=== PATIENT | female | born 1975 | race Caucasian/White ===

== ENCOUNTER 2023-09-26 16:44 | Inpatient (IN) | payer OTHER, SELFPAY ==
[2023-09-26] VITALS (11 sets, daily range): BP systolic 128–184; BP diastolic 74–118; BMI 34.9
--- NOTE | 2023-09-26 11:55 | ED.GENMED ---
History of Present Illness
General
Chief Complaint: Abdominal Pain
Source: patient
Time Seen by Provider: 09/26/23 11:42
Travel History
Have you had any contact with someone who has COVID-19?: No
Do you have any symptoms of coronavirus? Fever > 100 degrees, chills, cough, shortness of breath, sore throat, loss of taste or smell, muscle aches, or headache?: No
History of Present Illness
History of Present Illness:
48-year-old female presents to the emergency room complaining of a burning discomfort in her upper mid abdomen which began at about 1 AM last night. The discomfort woke her from sleep. She has vomited several times since then. Pain does not
radiate to her back. Patient does not believe she consumed anything yesterday which would have upset her stomach. She denies any fever though she does have chills particular after vomiting. Patient has had a cholecystectomy in the past. She
denies alcohol use. No diarrhea. Patient has the urge to defecate but cannot go today. Her last normal abdominal was yesterday. Patient denies any new medications. No change in the dose of her medications. No sick contacts.
Past History
Past History
ED Past Medical History: Asthma, Psychiatric (A/D) and Other (Migrainous headaches, recurrent sinusitis)
ED Past Surgical History: Cholecystectomy and Gynecological (D&E , Hysterectomy)
Social History
Tobacco: Former smoker
Alcohol: Occasional
Drug: None
Personal:
Living: with family
Employment: Employed
Family History
Family History: Hypertension; Negative Early CAD
Phy Exam
Physical Exam
Physical Exam:
General: Awake, Alert, Oriented X3. No acute distress.
Vitals: unremarkable
Head: Atraumatic
Eyes: Pupils equal, EOMI
Throat: Airway intact, no exudates
Neck: Trachea midline
Lungs: Clear and equal b/l
Heart: Regular rate, no murmurs
Abd: Soft, no reproducible discomfort, No pulsatile mass
Neuro: Nonfocal
Skin: Warm, dry, no rash
Extremities: pulses equal b/l, no edema
Course
Orders/Labs/Results
Orders:
Orders
09/26/23 10:58
EKG [Electrocardiogram (*1)] Urgent
Reason for Study: Chest Pain
09/26/23 10:59
EKG- Treatment ONCE
09/26/23 11:45
IV Insert/Care/Rem.- Treatment PRN
09/26/23 11:51
0.9% Sodium Chloride 1000 ml [Nss] 1,000 ml IV BOLUS
Famotidine [Pepcid] 20 mg IV NOW STA
Ondansetron Injectable [Zofran] 4 mg IV NOW STA
09/26/23 11:52
Complete Blood Count/With Diff Urgent
Comprehensive Metabolic Panel Urgent
Lipase Urgent
09/26/23 13:10
CT Abd/pelvis W Iv Cont Urgent
Comment:
Reason For Exam: upper abd pain
HYDROmorphone [Dilaudid] 0.5 mg IV NOW STA
09/26/23 14:21
Ondansetron Injectable [Zofran] 4 mg .ROUTE .STK-MED ONE
09/26/23 15:23
HYDROmorphone [Dilaudid] 0.25 mg .ROUTE .STK-MED ONE
09/26/23 15:26
HYDROmorphone [Dilaudid] 0.25 mg IV NOW STA
09/26/23 16:24
Admit/Transfer Patient As Directed
Co-Sign Provider:
Level of Care: Inpatient admission
Assign to:: Medical/Surgical
Physician / Group: Suman
Diagnosis: Small bowel obstruction
Reason for Hospitalization: NPO/IVFs
Expected length of stay greater than two midnights?: Yes
ELOS- Estimated Length of Stay in days: 3
I certify the patient meets the requirements for IP care: Yes
Code Status As Directed
Resuscitation Status: Full Code
09/26/23 16:38
UA Reflex to Culture [Urinalysis Reflex To Culture] Routine
Abnormal Lab Results
09/26/23
11:52
WBC 23.0 H 10^3/uL
(4.8-10.8)
RBC 5.48 H 10^6/uL
(4.20-5.40)
Hgb 16.4 H g/dL
(12.0-16.0)
Abs Immat Gran (auto) 0.2 H 10^3/uL
(0-0.05)
Absolute Neuts (auto) 20.7 H 10^3/uL
(1.4-6.5)
Absolute Monos (auto) 0.7 H 10^3/uL
(0.1-0.6)
Immature Gran % 0.7 H %
(0-0.5)
Neutrophils % 89.7 H %
(42.2-75.2)
Lymphocytes % 6.1 L %
(20.5-51.1)
Glucose 143 H mg/dl
(70-99)
Calcium 11.1 H mg/dl
(8.4-10.2)
AST 53 H U/L
(14-36)
ALT 82 H U/L
(0-35)
Total Protein 8.6 H g/dl
(6.3-8.2)
Albumin 5.1 H g/dl
(3.5-5.0)
09/26/23 11:52
09/26/23 11:52
Vital Signs
Initial and Last Documented VS:
Initial Vital Signs
Temp Pulse Resp BP Pulse Ox
98.7 F 107 16 184/118 96
09/26/23 10:56 09/26/23 10:56 09/26/23 10:56 09/26/23 10:56 09/26/23 10:56
Last Documented Vital Signs
Temp Pulse Resp BP Pulse Ox
98.7 F 101 16 144/94 96
09/26/23 10:56 09/26/23 16:00 09/26/23 16:00 09/26/23 16:00 09/26/23 16:00
MDM/Problems Addressed
Differential Diagnosis Includes:
Gastritis, pancreatitis, peptic ulcer disease
MDM/Problems Addressed:
Patient presents with moderate abdominal pain. Labs show an elevated white blood cell count, normal electrolytes and renal function, mildly elevated AST and ALT. Lipase is normal. CT of the abdomen and pelvis was performed without oral contrast
but with IV contrast and this shows evidence of a small bowel obstruction. Patient has vomited once here in the emergency room. I think it is reasonable to hold off on an NG tube right now and focus on IV hydration, bowel rest and analgesia.
Discussed patient's presentation with Dr. Dhillon who is on-call for general surgery. He agrees with this plan. Patient will be admitted to the hospitalist service. This factors are small bowel obstruction his previous abdominal surgery so this is
likely related to adhesions.
*Radiology
Radiology exam reviewed: radiology read reviewed
*Pulse Oximetry
Patient hypoxic: no
*EKG
Interpreted by ED Provider?: Yes
Heart Rate: 91
Rate: normal
Rhythm: sinus
[place]: normal axis
Interval: normal interval
QRS Pattern: normal QRS
Ischemia: no ischemia
*Critical Care Note
Total Time (30-74mins, 75-104mins- exclusive of procedures): Not Applicable
ED Attending Note
-
Portions of this chart may have been created with voice recognition software.� Occasional wrong word or��sound alike� substitutions may have occurred due to the inherent limitations of voice recognition software.
Discharge Plan
Departure
Patient Disposition: Admit
Date of Disposition: 09/26/23
Time of Disposition: 16:10
Admit to: Med/Surg
Presentation/result/management discussed w/ accepting MD/DO: Hospitalist
Condition: Fair
Discharge Problem:
Small bowel obstruction
Interventions
Interventions:
*Risk Screen - Suicide Last Done: 09/26/23 10:56
*General Assessment Last Done: 09/26/23 11:43
*Neglect/Abuse Screening Last Done: 09/26/23 10:56
ED- Fall Risk Assessment Last Done: 09/26/23 11:44
*ED COVID-19 Vaccine History Last Done: 09/26/23 11:43
XE-Hzgbwf-Btpvnnvsoh Assessment Last Done: 09/26/23 12:10
[2023-09-26 11:59] LABS: % Basophils 0.4 % (0-2); % Eosinophils 0.1 % (0-6); % Immature Granulocytes 0.7 % (0-0.5); % Lymphocytes 6.1 % (20.5-51.1); % Neutrophils 89.7 % (42.2-75.2); Absolute Basophils 0.1 10^3/uL (0-0.2); Absolute Immature Granulocytes 0.2 10^3/uL (0-0.05); Absolute Lymphocytes 1.4 10^3/uL (1.2-3.4); Absolute Monocytes 0.7 10^3/uL (0.1-0.6); Absolute Neutrophils 20.7 10^3/uL (1.4-6.5); Hematocrit 45.7 % (37.0-47.0); Hemoglobin 16.4 g/dL (12.0-16.0); Mean Corp Hgb Conc. 35.9 g/dL (33.0-37.0); Mean Corpuscular Hgb 29.9 pg (27.0-31.0); Mean Corpuscular Volume 83.4 fL (81.0-99.0); Mean Platelet Volume 9.5 fL (7.4-10.4); Nucleated Red Blood Cells % 0 %; Platelet Count 285 10^3/uL (130-400); Red Blood Cell Count 5.48 10^6/uL (4.20-5.40); Red Cell Dist. Width 12.4 % (11.5-14.5)
[2023-09-26] MEDS: ZOFRAN 4 MG IV (12:03)
[2023-09-26] MEDS: NSS 1000 IV (12:03)
[2023-09-26] MEDS: PEPCID 20 MG IV (12:06)
[2023-09-26 12:19] LABS: ALT (SGPT) 82 U/L (0-35); AST (SGOT) 53 U/L (14-36); Albumin 5.1 g/dl (3.5-5.0); Alkaline Phosphatase 90 U/L (38-126); Blood Urea Nitrogen 10 mg/dl (7-17); Calcium 11.1 mg/dl (8.4-10.2); Carbon Dioxide 23 mmol/L (22-30); Chloride 104 mmol/L (98-107); Estimated Creatinine Clearance > 125 ml/min; Glucose 143 mg/dl (70-99); Lipase 116 U/L (23-300); Sodium 138 mmol/L (135-145); Total Bilirubin 0.8 mg/dl (0.2-1.3); Total Protein 8.6 g/dl (6.3-8.2); eGFR > 60.00
[2023-09-26] MEDS: DILAUDID 0.5 MG IV (13:46)
--- NOTE | 2023-09-26 14:29 | EDRN ---
Pt was just vomiting and given a second dose of zofran. Pt is awaiting to go to CT. Pt states post vomiting pain 5-6/10 at this time post vomiting episode. Pt declined dilaudid and this RN asked about morphine and she declined any medication for
pain at this time. Pt informed to call me if pain is like it was prior to dilaudid.
--- NOTE | 2023-09-26 15:17 | EDRN ---
Dr. Jacobo verbally said pt could have more dilaudid for her pain. Pt's pain post dilaudid decreased to 4/10 but has been increasing, was 5-6/[address] scan and is now 7/10. Pt did not like how she felt post dilaudid and is declining any more
pain medication at this time.
[2023-09-26] MEDS: DILAUDID 0.25 MG IV (15:26)
--- NOTE | 2023-09-26 16:09 | EDRN ---
Dr. Jacobo informed pt's pain now fluctuating from 1-7/10 and that she is having severe nausea again. pt sitting up in bed looking uncomfortable. He said he will be in to speak to pt.
--- NOTE | 2023-09-26 16:14 | EDRN ---
General surgery in room w/ pt at this time.
--- NOTE | 2023-09-26 16:20 | EDRN ---
Serena Lewis PA in to see pt at this time.
--- NOTE | 2023-09-26 16:25 | CON.GS ---
Medical History
-
Chief Complaint: abdominal pain
History of Present Illness:
This is a 48 yo female with a h/o asthma, lap aileen, partial hysterectomy and bladder sling who presents through the ED with nausea and vomiting and worsening upper abdominal pain/burning. She reports feeling intermittent abdominal discomfort over
the past few weeks with bloating. She unsure how long it has been since she last passed flatus but notes she has been belching a lot over the past week. Her last BM was yesterday. Today, she had the sensation that she needed to pass gas and stool,
but was unable to. She complains of burning epigastric discomfort but is non-tender on exam. Abdomen is soft with mild distention. Nausea improved since presentation. She denies fevers and chills but does note she feels quite flushed and warm just
before vomiting. She has 2 very small hernias noted, umbilical and ventral, both are soft and reducible.
Past Medical History
Past Medical History: Asthma, Psychiatric (anxiety/depression) and Other (migraines)
Past Surgical History: Cholecystectomy, Gynecological (D&E, partial hysterectomy (lap)) and Urological (bladder sling)
Social History
Tobacco: Former Smoker
Alcohol: Occasional
Personal:
Living: With Family (2 teenage children)
Family History
Family History: Reviewed & Not Pertinent
Allergies / Home Medications
Allergy/AdvReac Type Severity Reaction Status Date / Time
fish derived Allergy Hives Verified 09/26/23 10:56
shellfish derived Allergy Itching Verified 09/26/23 10:56
�Medication �Instructions �Recorded �Confirmed �Type
L.acidoph, paracasei,B. lactis 10 1 ea PO DAILY 12/07/20 12/07/20 History
billion cell capsule
cranberry 1,000 mg capsule 1,000 mg PO DAILY 12/07/20 12/07/20 History
docosahexaenoic acid 100 mg capsule 100 mg PO DAILY 12/07/20 12/07/20 History
fluvoxamine 150 mg 250 mg PO DAILY 12/07/20 12/07/20 History
capsule,extended release 24 hr
montelukast 10 mg tablet 10 mg PO DAILY 12/07/20 12/07/20 History
multivit,bqapser-rnfs-PQ-lut-#179herbal 1 tab PO DAILY 12/07/20 12/07/20 History
13.5 mg-200 mcg-250 mcg tablet
(Womens Multivitamin High Potency)
prednisone 10 mg tablets in a dose 10 mg PO DAILY 12/07/20 12/07/20 History
pack
gabapentin 300 mg capsule 300 mg PO DAILY #20 caps 11/13/22 Rx
methylprednisolone 4 mg tablets in See Rx Instructions PO .COMPLEX 11/13/22 Rx
a dose pack (Methylpred DP) #21 ea
Review of Systems
-
History Source: Patient and Family (father at bedside)
All other systems: Negative unless noted
A 10 point review of systems was completed, and was negative except as per HPI.
Physical Exam
Vital Signs
Temp Pulse Resp BP Pulse Ox
98.7 F 101 16 144/94 96
09/26/23 10:56 09/26/23 16:00 09/26/23 16:00 09/26/23 16:00 09/26/23 16:00
09/25/23 09/26/23 09/27/23
06:59 06:59 06:59
Actual Weight 98.2 kg
Body Mass Index (BMI) 0.0
Lab Results
09/26/23 11:52
09/26/23 11:52
WBC 23.0 10^3/uL (4.8-10.8) H 09/26/23 11:52
Hgb 16.4 g/dL (12.0-16.0) H 09/26/23 11:52
Hct 45.7 % (37.0-47.0) 09/26/23 11:52
Plt Count 285 10^3/uL (130-400) 09/26/23 11:52
Abs Immat Gran (auto) 0.2 10^3/uL (0-0.05) H 09/26/23 11:52
Neutrophils % 89.7 % (42.2-75.2) H 09/26/23 11:52
Physical Exam
General: Well Developed and Well Nourished
HEENT: Moist Mucous Membranes
Respiratory: Non Labored Respirations
GI: Soft, Non Tender, Distended (mild) and Other (umbilical hernia soft, reducible. small ventral hernia, also soft, reducible)
Skin: Warm and Dry
Neuro: Awake, Alert and AO x 3
Data Reviewed
-
CT Scan: Image Personally Visualized and interpreted, Report Reviewed by me, Discussed with Physician, Discussed with Patient and Discussed with Family
Labs: Labs Reviewed by me, Discussed with Physician, Discussed with Patient and Discussed with Family
Old Records: Reviewed
Assessment / Plan
-
48 yo female h/o asthma, lap aileen, partial hysterectomy and bladder sling who presents through the ED with n/v, epigastric abdominal pain and belching. Unable to pass bm/flatus today despite cramping. Several week history of cramping pain, last BM
was yesterday. AFVSS, +Leukocytosis. CT imaging reviewed with findings consistent with SBO, suspect secondary to adhesions from prior surgery. No free air or evidence of closed loop obstruction present. There are 2 small hernias present without
bowel involvement on CT; soft/reducible on exam. Abdomen soft/nt/mild distention.
No plans for emergent surgery at this time, will follow for resolution with bowel rest and supportive measures at this time
--NPO except ice chips/meds
--NGT placement if develops intractable n/v.
--IVF as per medical team
--Trend labs/exams
--- NOTE | 2023-09-26 16:54 | HPS.HSE ---
Family Physician
-
Family Physician: Warren Phillips Jr.
Chief Complaint
-
Abdominal Pain with Nausea / Vomiting
History of Present Illness
Patient is a 48 year old female with a past medical history anxiety, and GERD who presents today for worsening abdominal pain which began early this morning. Patient reports intermittent pain for the past week but reports this morning she was awoken
with severe pain. She describes it as a burning sensation in her epigastric region and states the pain was 9/10 at onset. She had tried Pepcid, Tums, Pepto-Bismol, and 1 dose of omeprazole which no relief. She also has associated chills, nausea and
vomiting and increased bloating. She has a decrease in appetite but denies eating any new foods. She normally passes formed and soft bowel movements about 3-4 x/day, but has not had a BM since yesterday.
Medical History
Past Medical History
Past Medical History: Reports Other
Additional Past Medical History:
Asthma
Anxiety
Past Surgical History: Reports Other
Additional Past Surgical History:
Cholecystectomy
Partial Hysterectomy / Bladder Sling
Social History
Tobacco: Non-smoker
Alcohol: None
Family History
Family History: Not pertinent
Allergies / Home Medications
Allergies reflects when Allergies were last updated in [facility].
Home Medications with original date entered in [facility]
Allergy/Medication List:
Allergies
Allergy/AdvReac Type Severity Reaction Status Date / Time
fish derived Allergy Hives Verified 09/26/23 10:56
shellfish derived Allergy Itching Verified 09/26/23 10:56
Home Medications
L.acidoph, paracasei,B. lactis 10 billion cell capsule 1 ea PO DAILY 12/07/20
cranberry 1,000 mg capsule 1,000 mg PO DAILY 12/07/20
docosahexaenoic acid 100 mg capsule 100 mg PO DAILY 12/07/20
fluvoxamine 150 mg capsule,extended release 24 hr 250 mg PO HS 12/07/20
montelukast 10 mg tablet 10 mg PO DAILYPRN Allergies 12/07/20
multivit,hijlwgw-dzkk-PU-lut-#179herbal 13.5 mg-200 mcg-250 mcg tablet (Womens Multivitamin High Potency) 1 tab PO DAILY 12/07/20
gabapentin 300 mg capsule 600 mg PO HS #20 caps 11/13/22
Review of Systems
-
A 12 point ROS was completed and negative except as noted: Yes
Constitutional: Denies Fever
Respiratory: Denies Cough or Trouble Breathing
Cardiac: Denies Chest Pain or Palpitations
Abdomen/GI: Reports See HPI
Physical Exam
Vital Signs
Vital Signs
Temp Pulse Resp BP Pulse Ox
98.7 F 101 16 144/94 96
09/26/23 10:56 09/26/23 16:00 09/26/23 16:00 09/26/23 16:00 09/26/23 16:00
Physical Exam
General: Comfortable and Conversant
HEENT: Anicteric, Moist mucous membranes and Atraumatic
Respiratory: Clear and Non Labored Respirations
Cardiac: S1/S2 and Regular Rhythm
GI: Soft, Non Distended and Tender (Mild tenderness in epigastric region without rebound or guarding)
Rectal: Deferred by Provider
Musculoskeletal: No Clubbing, No Cyanosis and No Edema
Skin: Warm and Dry
Neuro: Awake, Alert, Oriented and Nonfocal/grossly intact
Laboratory Results
-
09/26/23 11:52
09/26/23 11:52
Laboratory Results
Total Bilirubin 0.8 mg/dl (0.2-1.3) 09/26/23 11:52
AST 53 U/L (14-36) H 09/26/23 11:52
ALT 82 U/L (0-35) H 09/26/23 11:52
Alkaline Phosphatase 90 U/L (38-126) 09/26/23 11:52
Lipase 116 U/L (23-300) 09/26/23 11:52
Data Reviewed
-
Lab Data: Labs Reviewed by me
Impression/Plan
-
Small Bowel Obstruction
-Consult Surgery
-Continue NPO/IVFs
-Place NGT if develops intractable N/V/Pain
-Continue antiemetics prn
-Continue pain control - Attempt avoid opioids
Anxiety
-Continue fluvoxamine
DVT proph: SCDs
Code Status: Full Code
--- NOTE | 2023-09-26 17:05 | EDRN ---
Dr. Will in to see pt.
--- NOTE | 2023-09-26 17:19 | W.PN.UPDATE ---
Update Note
Progress Note Update
This note is in addition to GROOVER OPERATOR/PA H&P
I saw and examined the patient.
The GROOVER OPERATOR or PA's note was reviewed and I agree with the note.
Comment:
48-year-old female with past medical history of asthma, anxiety, depression, migraine came to the hospital with upper abdominal pain, nausea and vomiting.� Denies any fever/chills.� CT scan was done in the ED which was concerning for developing
small bowel obstruction versus ileus.� Consult surgery.� NPO.� Start fluids. NGT if persistently nauseous and vomiting.
General: Comfortable and Conversant
HEENT: Anicteric, Moist mucous membranes and Atraumatic
Respiratory: Clear and Non Labored Respirations
Cardiac: S1/S2 and Regular Rhythm
GI: Soft, Non Distended and Tender (Mild tenderness in epigastric region without rebound or guarding)
Musculoskeletal: No Clubbing, No Cyanosis and No Edema
Neuro: Awake, Alert, Oriented and Nonfocal/grossly intact
I spent a total of 77 minutes with the patient or on the floor. More than 50% of this time involved counseling and coordination of care.
[2023-09-26] MEDS: FLUSH (NSS) 2 FLUSH IV (18:39)
[2023-09-26] MEDS: TORADOL 10 MG IV (18:39)
[2023-09-26] MEDS: D5/0.45%NACL 1000 IV (19:38)
[2023-09-26] MEDS: FLUSH (NSS) 1 FLUSH IV (19:39)
[2023-09-26] MEDS: NEURONTIN 600 MG PO (21:04)
[2023-09-26] MEDS: ZYRTEC 10 MG PO (21:04)
[2023-09-26] MEDS: NON-FORMULARY ITEM 100 MG PO (22:04)
[2023-09-26] MEDS: NON-FORMULARY ITEM 1 UNIT PO (22:05)
[2023-09-27] MEDS: TORADOL 10 MG IV ×2 (05:49→16:10)
[2023-09-27] MEDS: D5/0.45%NACL 1000 IV (05:49)
[2023-09-27 06:17] LABS: Urine Albumin Negative (Neg - Trace); Urine Bilirubin Negative (Negative); Urine Character Clear (Clear); Urine Color Yellow; Urine Glucose Negative (Negative); Urine Ketone Negative (Negative); Urine Leukocyte Negative (Negative); Urine Nitrite Negative (Negative); Urine Occult Blood Negative (Negative); Urine Specific Gravity 1.015 (<1.030); Urine Urobilinogen Negative (Neg - 1+)
[2023-09-27 07:55] VITALS: BP 171/91
[2023-09-27] MEDS: PROTONIX IV 40 MG IV (08:18)
[2023-09-27] MEDS: NSS (PRESERVATIVE FREE) 10 ML IV (08:18)
[2023-09-27 08:24] LABS: Hematocrit 38.9 % (37.0-47.0); Hemoglobin 13.2 g/dL (12.0-16.0); Mean Corp Hgb Conc. 33.9 g/dL (33.0-37.0); Mean Corpuscular Hgb 29.5 pg (27.0-31.0); Platelet Count 234 10^3/uL (130-400); Red Blood Cell Count 4.47 10^6/uL (4.20-5.40); Red Cell Dist. Width 12.5 % (11.5-14.5); White Blood Cell Count 12.9 10^3/uL (4.8-10.8)
[2023-09-27 08:30] VITALS: BP 150/98
[2023-09-27 08:49] LABS: Blood Urea Nitrogen 11 mg/dl (7-17); Calcium 9.8 mg/dl (8.4-10.2); Carbon Dioxide 27 mmol/L (22-30); Chloride 105 mmol/L (98-107); Estimated Creatinine Clearance 114 ml/min; Glucose 113 mg/dl (70-99); Potassium 3.7 mmol/L (3.5-5.1); Sodium 135 mmol/L (135-145); eGFR > 60.00
--- NOTE | 2023-09-27 09:23 | W.PN.GS2 ---
Today's Communication / Plan
-
Clear liquids
Assessment / Plan
-
48 yo female with h/o lap aileen, partial hysterectomy and bladder sling who presented with a SBO (her first). Passed some flatus today with resolution of nausea.
CBC still pending
AFVSS
Lytes stable
--Advance to CLD and follow for tolerance
--IVF as per primary team
--Continue to follow labs/exams for resolution with non-operative measures
Subjective Data
-
Date of Service: September 27, 2023
Patient seen and examined at bedside with Dr. Dhillon. Denies n/v. Passed some gas this am. Denies pain. Bloating persists.
Objective Data
-
Intake and Output
09/26/23 09/27/23 09/28/23
06:59 06:59 06:59
Intake Total 895 / 895
Balance 895 / 895
Intake:
IV fluids (Total) 895 / 895
Other:
Number of approximated MODERATE 2
amounts of urine
Vital Signs
Temp Pulse Resp BP Pulse Ox
99.1 F 76 18 150/98 97
09/27/23 07:55 09/27/23 07:55 09/27/23 07:55 09/27/23 08:30 09/27/23 08:17
Lab Results
09/27/23 07:49
Calcium 9.8 mg/dl (8.4-10.2) 09/27/23 07:49
Total Bilirubin 0.8 mg/dl (0.2-1.3) 09/26/23 11:52
AST 53 U/L (14-36) H 09/26/23 11:52
ALT 82 U/L (0-35) H 09/26/23 11:52
Alkaline Phosphatase 90 U/L (38-126) 09/26/23 11:52
Total Protein 8.6 g/dl (6.3-8.2) H 09/26/23 11:52
Albumin 5.1 g/dl (3.5-5.0) H 09/26/23 11:52
Physical Exam
-
NAD
ABD soft/nt/nd
--- NOTE | 2023-09-27 11:26 | CM ---
Initial assessment completed with pt at bedside.
Pt is a 48yr old admitted with SBO.
Pt at baseline pt lives with her 2 sons and functions independently/working.
Pt has no hx of DME or VN needs.
PCP; Warren Phillips
Pharm; [facility] [phone]
PLAN; DC to home with no needs
--- NOTE | 2023-09-27 11:50 | W.PN.HOSP.TC ---
Today's Communication/Plan
-
Monitor vital signs and see plan
Continue with IV fluids
Trial of clears
Awaiting bowel return
pain control
antiemetics
Assessment / Plan
Assessment / Plan
General: Comfortable and Conversant
HEENT: Anicteric, Moist mucous membranes and Atraumatic
Respiratory: Clear and Non Labored Respirations
Cardiac: S1/S2 and Regular Rhythm
GI: Soft, Non Distended and Tender (Mild tenderness in epigastric region without rebound or guarding)
Musculoskeletal: No Clubbing, No Cyanosis and No Edema
Neuro: Awake, Alert, Oriented and Nonfocal/grossly intact
Small Bowel Obstruction
Surgery following
trial of clears
passing flatus; still no BM
-Place NGT if develops intractable N/V/Pain
-Continue antiemetics prn
-Continue pain control - Attempt avoid opioids
Leukocytosis
Suspect reactive
Monitor
Anxiety
-Continue fluvoxamine
History of depression
History of migraine
DVT proph: SCDs
Code Status: Full Code
Anticipated Discharge: Within 24 hours
Subjective/Interval History
-
Date of Service: September 27, 2023
Denies pain
Objective Data
-
Labs:
Laboratory Results
09/27/23
07:49
WBC 12.9 H
Hgb 13.2
Hct 38.9
Plt Count 234
Sodium 135
Potassium 3.7
Chloride 105
Carbon Dioxide 27
BUN 11
Creatinine 0.7
Glucose 113 H
Calcium 9.8
Vital Signs:
Vital Signs
Temp Pulse Resp BP Pulse Ox
99.1 F 76 18 150/98 97
09/27/23 07:55 09/27/23 07:55 09/27/23 07:55 09/27/23 08:30 09/27/23 08:17
I&O
09/26/23 09/27/23 09/28/23
06:59 06:59 06:59
Intake Total 895 / 895
Balance 895 / 895
[2023-09-27] MEDS: NSS 1000 IV (12:47)
[2023-09-27 15:55] VITALS: BP 172/101
[2023-09-27 16:05] VITALS: BP 168/92
[2023-09-27] MEDS: FLUSH (NSS) 1 FLUSH IV (16:11)
[2023-09-27] MEDS: APRESOLINE 5 MG IV (16:12)
[2023-09-27 17:19] VITALS: BP 142/92
--- NOTE | 2023-09-27 17:19 | PTCARENOTE ---
Pt AAO x3, GAR well, ambulator yin room/ortiz, noe well. VSS; BP remains elevated; prn IV Hydralazine dose given x1.. On room air-pulseox 97%. Abd obese, soft, pt occ c/o upper abd 'burning sensation'; noe small amts clear liquids; pt reluctant to
attempt PO intake. Passing small amts flatus. No c/o N/V. Voiding in BR without difficulty. IVF's NSS @ 80 m/hr infusing via Rt AC site without sx of infiltration. Resting in bed at present. Will continue to monitor.
[2023-09-27] MEDS: NON-FORMULARY ITEM 100 MG PO (21:14)
[2023-09-27] MEDS: NON-FORMULARY ITEM 1 UNIT PO (21:14)
[2023-09-27] MEDS: ZYRTEC 10 MG PO (21:15)
[2023-09-27] MEDS: NEURONTIN 600 MG PO (21:15)
[2023-09-27] MEDS: OFIRMEV 100 IV (21:52)
[2023-09-27 23:31] VITALS: BP 145/88
[2023-09-28] MEDS: NSS 1000 IV ×2 (01:10→14:08)
[2023-09-28 05:51] LABS: Hematocrit 38.8 % (37.0-47.0); Hemoglobin 13.3 g/dL (12.0-16.0); Mean Corp Hgb Conc. 34.3 g/dL (33.0-37.0); Mean Corpuscular Hgb 29.8 pg (27.0-31.0); Mean Corpuscular Volume 86.8 fL (81.0-99.0); Mean Platelet Volume 9.4 fL (7.4-10.4); Platelet Count 206 10^3/uL (130-400); Red Blood Cell Count 4.47 10^6/uL (4.20-5.40); Red Cell Dist. Width 12.4 % (11.5-14.5); White Blood Cell Count 10.6 10^3/uL (4.8-10.8)
[2023-09-28 06:10] LABS: Blood Urea Nitrogen 10 mg/dl (7-17); Calcium 9.4 mg/dl (8.4-10.2); Carbon Dioxide 26 mmol/L (22-30); Chloride 107 mmol/L (98-107); Estimated Creatinine Clearance > 125 ml/min; Glucose 97 mg/dl (70-99); Potassium 3.7 mmol/L (3.5-5.1); Sodium 139 mmol/L (135-145); eGFR > 60.00
[2023-09-28 07:30] VITALS: BP 179/108
[2023-09-28] MEDS: NSS (PRESERVATIVE FREE) 10 ML IV (08:00)
[2023-09-28] MEDS: PROTONIX IV 40 MG IV (08:00)
--- NOTE | 2023-09-28 10:39 | W.PN.GS2 ---
Today's Communication / Plan
-
Advance diet
Assessment / Plan
-
48 yo female with h/o lap aileen, partial hysterectomy and bladder sling who presented with a SBO (her first).
Clinically improving with +BM/Flatus. tolerating clears
Leukocytosis resolved
AFVSS
--Advance to LRD and follow for tolerance
--IVF as per primary team
--No operative intervention planned at this time
Subjective Data
-
Date of Service: September 28, 2023
Patient seen and examined at bedside with Dr. Philip. Valle n/v. Passing flatus and loose stools overnight. Some epigastric discomfort persists, but notes abdominal bloating much improved.
Objective Data
-
Intake and Output
09/27/23 09/28/23 09/29/23
06:59 06:59 06:59
Intake Total 895 / 895 2590 / 2590
Balance 895 / 895 2590 / 2590
Intake:
Oral fluids 630 / 630
IV fluids (Total) 895 / 895 1960 / 1960
Other:
Number of approximated MODERATE 2 3
amounts of urine
Vital Signs
Temp Pulse Resp BP Pulse Ox
98.3 F 67 18 179/108 97
09/28/23 07:30 09/28/23 07:30 09/28/23 07:30 09/28/23 07:30 09/28/23 07:30
Lab Results
09/28/23 05:36
09/28/23 05:36
Calcium 9.4 mg/dl (8.4-10.2) 09/28/23 05:36
Total Bilirubin 0.8 mg/dl (0.2-1.3) 09/26/23 11:52
AST 53 U/L (14-36) H 09/26/23 11:52
ALT 82 U/L (0-35) H 09/26/23 11:52
Alkaline Phosphatase 90 U/L (38-126) 09/26/23 11:52
Total Protein 8.6 g/dl (6.3-8.2) H 09/26/23 11:52
Albumin 5.1 g/dl (3.5-5.0) H 09/26/23 11:52
Physical Exam
-
NAD
ABD soft/nt/nd
[2023-09-28 10:44] VITALS: BP 138/96
--- NOTE | 2023-09-28 11:08 | W.PN.HOSP.TC ---
Today's Communication/Plan
-
Monitor vital signs and see plan
Advance diet and closely monitor
Still has some abdominal bloating
Hopeful DC next 24 hours
Assessment / Plan
Assessment / Plan
General: Comfortable and Conversant
HEENT: Anicteric, Moist mucous membranes and Atraumatic
Respiratory: Clear and Non Labored Respirations
Cardiac: S1/S2 and Regular Rhythm
GI: Soft, Non Distended and Tender (Mild tenderness in epigastric region without rebound or guarding)
Musculoskeletal: No Clubbing, No Cyanosis and No Edema
Neuro: Awake, Alert, Oriented and Nonfocal/grossly intact
Small Bowel Obstruction
Surgery following
Now advance to low residue diet, still has some abdominal bloating so we will closely monitor
passing flatus; very small bowel movement overnight
-Place NGT if develops intractable N/V/Pain
-Continue antiemetics prn
-Continue pain control - Attempt avoid opioids
Leukocytosis
Suspect reactive
Resolved
Anxiety
-Continue fluvoxamine
History of depression
History of migraine
DVT proph: SCDs
Code Status: Full Code
Anticipated Discharge: Within 24 hours
Subjective/Interval History
-
Date of Service: September 28, 2023
Does have some abdominal bloating
Objective Data
-
Labs:
Laboratory Results
09/28/23
05:36
WBC 10.6
Hgb 13.3
Hct 38.8
Plt Count 206
Sodium 139
Potassium 3.7
Chloride 107
Carbon Dioxide 26
BUN 10
Creatinine 0.6
Glucose 97
Calcium 9.4
Vital Signs:
Vital Signs
Temp Pulse Resp BP Pulse Ox
98.3 F 80 18 138/96 97
09/28/23 07:30 09/28/23 10:44 09/28/23 07:30 09/28/23 10:44 09/28/23 07:30
I&O
09/27/23 09/28/23 09/29/23
06:59 06:59 06:59
Intake Total 895 / 895 2590 / 2590
Balance 895 / 895 2590 / 2590
[2023-09-28] MEDS: NSS IV (12:59)
[2023-09-28 15:15] VITALS: BP 155/95
[2023-09-28] MEDS: NEURONTIN 600 MG PO (20:55)
[2023-09-28] MEDS: NON-FORMULARY ITEM 1 UNIT PO (20:55)
[2023-09-28] MEDS: ZYRTEC 10 MG PO (20:55)
[2023-09-28] MEDS: NON-FORMULARY ITEM 100 MG PO (20:56)
[2023-09-28 23:55] VITALS: BP 149/91
[2023-09-29 07:30] VITALS: BP 122/70
[2023-09-29] MEDS: PROTONIX IV IV (08:40)
[2023-09-29] MEDS: NSS (PRESERVATIVE FREE) IV (08:40)
[2023-09-29] MEDS: PROTONIX 40 MG PO (08:53)
--- NOTE | 2023-09-29 10:03 | W.PN.GS2 ---
Today's Communication / Plan
-
--LRD
--SBFT
Assessment / Plan
-
48 yo female with h/o lap aileen, partial hysterectomy and bladder sling who presented with a SBO (her first).
Clinically improving with +BM/Flatus. Overall tolerating LRD.
Leukocytosis resolved
AFVSS
Plan for SBFT for diagnostic (transit time) and therapeutic intention.
--LRD
--SBFT
--OOB.ambulate, correct lytes, minimize narcotics
--No operative intervention planned at this time
Subjective Data
-
Date of Service: September 29, 2023
Doing okay, does report some continued bloating and lower abdominal discomfort particularly with oral intake. No nausea or vomiting. Passing flatus and stool. Overall tolerating LRD. No fevers or chills.
Objective Data
-
Intake and Output
09/28/23 09/29/23 09/30/23
06:59 06:59 06:59
Intake Total 2590 / 2590 1608 / 1608
Balance 2590 / 2590 1608 / 1608
Intake:
Oral fluids 630 / 630 720 / 720
IV fluids (Total) 1959 / 1959 888 / 888
Other:
Number of approximated MODERATE 3 2
amounts of urine
Number of approximated LARGE 4
amounts of urine
Vital Signs
Temp Pulse Resp BP Pulse Ox
98.6 F 63 16 122/70 97
09/29/23 07:30 09/29/23 07:30 09/29/23 07:30 09/29/23 07:30 09/29/23 08:20
Lab Results
09/28/23 05:36
09/28/23 05:36
Calcium 9.4 mg/dl (8.4-10.2) 09/28/23 05:36
Total Bilirubin 0.8 mg/dl (0.2-1.3) 09/26/23 11:52
AST 53 U/L (14-36) H 09/26/23 11:52
ALT 82 U/L (0-35) H 09/26/23 11:52
Alkaline Phosphatase 90 U/L (38-126) 09/26/23 11:52
Total Protein 8.6 g/dl (6.3-8.2) H 09/26/23 11:52
Albumin 5.1 g/dl (3.5-5.0) H 09/26/23 11:52
Physical Exam
-
Gen: NAD
Abd: obese, soft, minimal lower abdominal tenderness, unable to assess distension due to body habitus, non-peritoneal
--- NOTE | 2023-09-29 10:46 | W.PN.HOSP.TC ---
Today's Communication/Plan
-
Monitor vital signs and see plan
Plan now for SBFT which cannot be done until tomorrow
N.p.o. past midnight
cw PPI
Assessment / Plan
Assessment / Plan
General: Comfortable and Conversant
HEENT: Anicteric, Moist mucous membranes and Atraumatic
Respiratory: Clear and Non Labored Respirations
Cardiac: S1/S2 and Regular Rhythm
GI: Soft, Non Distended and Tender (Mild tenderness in epigastric region without rebound or guarding)
Musculoskeletal: No Clubbing, No Cyanosis and No Edema
Neuro: Awake, Alert, Oriented and Nonfocal/grossly intact
Small Bowel Obstruction
Surgery following
on LRD; + abdominal bloating and some crampy pain. Seen by surgery rec SB follow through. cant do it today as she ate. NPO past midnight for SBFT
passing flatus; 1 BM overnight
-Continue antiemetics prn
-Continue pain control - Attempt avoid opioids
Leukocytosis
Suspect reactive
Resolved
hx of GERD
on PPI
Anxiety
-Continue fluvoxamine
History of depression
History of migraine
DVT proph: SCDs
Code Status: Full Code
Anticipated Discharge: Within 24 hours
Subjective/Interval History
-
Date of Service: September 29, 2023
does have some abdominal bloating
Objective Data
-
Vital Signs:
Vital Signs
Temp Pulse Resp BP Pulse Ox
98.6 F 63 16 122/70 97
09/29/23 07:30 09/29/23 07:30 09/29/23 07:30 09/29/23 07:30 09/29/23 08:20
I&O
09/28/23 09/29/23 09/30/23
06:59 06:59 06:59
Intake Total 2590 / 2590 1608 / 1608
Balance 259 / 2590 1608 / 1608
[2023-09-29] MEDS: MAALOX 30 ML PO (11:26)
[2023-09-29 15:30] VITALS: BP 140/89
[2023-09-29] MEDS: NEURONTIN 600 MG PO (21:25)
[2023-09-29] MEDS: NON-FORMULARY ITEM 100 MG PO (21:25)
[2023-09-29] MEDS: ZYRTEC 10 MG PO (21:25)
[2023-09-29] MEDS: NON-FORMULARY ITEM 1 UNIT PO (21:26)
[2023-09-29 23:18] VITALS: BP 155/103
[2023-09-29 23:31] VITALS: BP 156/94
--- NOTE | 2023-09-30 03:05 | DOWNTIME ---
There was a [employer] Engineer Downtime on 09/02/2023 from 0100 to 09/02/2023 at 0439. Downtime documentation of patient's care, including medication administrations, has been reconciled in the electronic record per guidelines. Refer to the
patient's paper chart under the miscellaneous tab to see printed paper medication records and downtime forms.
[2023-09-30 05:41] LABS: % Basophils 0.5 % (0-2); % Eosinophils 2.4 % (0-6); % Immature Granulocytes 0.6 % (0-0.5); % Lymphocytes 24.7 % (20.5-51.1); % Monocytes 6.5 % (1.7-9.3); % Neutrophils 65.3 % (42.2-75.2); Absolute Basophils 0.1 10^3/uL (0-0.2); Absolute Eosinophils 0.3 10^3/uL (0-0.7); Absolute Immature Granulocytes 0.1 10^3/uL (0-0.05); Absolute Lymphocytes 2.9 10^3/uL (1.2-3.4); Absolute Monocytes 0.8 10^3/uL (0.1-0.6); Absolute Neutrophils 7.8 10^3/uL (1.4-6.5); Mean Corpuscular Hgb 29.6 pg (27.0-31.0); Mean Corpuscular Volume 84.6 fL (81.0-99.0); Mean Platelet Volume 9.5 fL (7.4-10.4); Nucleated Red Blood Cells % 0 %; Platelet Count 243 10^3/uL (130-400); Red Blood Cell Count 4.73 10^6/uL (4.20-5.40); Red Cell Dist. Width 12.2 % (11.5-14.5); White Blood Cell Count 11.9 10^3/uL (4.8-10.8)
[2023-09-30 06:00] LABS: Blood Urea Nitrogen 13 mg/dl (7-17); Calcium 10.2 mg/dl (8.4-10.2); Carbon Dioxide 27 mmol/L (22-30); Chloride 103 mmol/L (98-107); Estimated Creatinine Clearance 114 ml/min; Glucose 93 mg/dl (70-99); Potassium 3.7 mmol/L (3.5-5.1); Sodium 139 mmol/L (135-145); eGFR > 60.00
[2023-09-30] MEDS: PROTONIX 40 MG PO (07:47)
[2023-09-30 08:18] VITALS: BP 154/104
--- NOTE | 2023-09-30 12:39 | W.PN.HOSP.TC ---
Addendum entered and electronically signed by Carlos A Sesay MD 09/30/23 13:54:
SBFT Ok.
Discharge
D/W RN
D/W Surgeon
Work note given
Total time evaluating and Discharge time over 30 min
Original Note:
Today's Communication/Plan
-
Add on LFT
Await SBFT
Possible discharge
Assessment / Plan
Assessment / Plan
feels no pain or nausea
CVS: S1-S2 normal
Chest: CTA B/L
Abdomen: Soft, NT / Bowel sounds present
Extremities: No edema, normal pulses
#Small Bowel Obstruction vs ileus
on LRD; + abdominal bloating and some crampy pain.
S/P SBFT today-results pending
#Leukocytosis
Suspect reactive
Resolved
#hx of GERD
on PPI
#Anxiety
-Continue fluvoxamine
#History of depression
#Hepatic steatosis -Repeat Lfts
#History of migraine
#Simple left ovarian cyst measuring 2.4 cm.
#DVT proph: SCDs
#Code Status: Full Code
Anticipated Discharge: Within 24 hours
Subjective/Interval History
-
Date of Service: September 30, 2023
Objective Data
-
Labs:
Laboratory Results
09/30/23
05:04
WBC 11.9 H
Hgb 14.0
Hct 40.0
Plt Count 243
Sodium 139
Potassium 3.7
Chloride 103
Carbon Dioxide 27
BUN 13
Creatinine 0.7
Glucose 93
Calcium 10.2
Vital Signs:
Vital Signs
Temp Pulse Resp BP Pulse Ox
98.4 F 60 18 154/104 95
09/30/23 08:18 09/30/23 08:18 09/30/23 08:18 09/30/23 08:18 09/30/23 08:18
I&O
09/29/23 09/30/23 10/01/23
06:59 06:59 06:59
Intake Total 1608 / 1608 900 / 900
Balance 1608 / 1608 900 / 900
[2023-09-30 13:17] LABS: ALT (SGPT) 60 U/L (0-35); AST (SGOT) 39 U/L (14-36); Alkaline Phosphatase 65 U/L (38-126); Direct Bilirubin 0.2 mg/dl (0.0-0.4); Total Bilirubin 0.6 mg/dl (0.2-1.3); Total Protein 6.8 g/dl (6.3-8.2)
--- NOTE | 2023-09-30 13:22 | W.PN.UPDATE ---
Update Note
Progress Note Update
SBFT reviewed, transit time to cecum 1hr, well within normal limites. No indication for surgical intervention. OK for DC when tolerating LRD
--- NOTE | 2023-09-30 13:56 | W.DS.TRANS ---
Addendum entered and electronically signed by Carlos A Sesay MD 09/30/23 15:01:
Dictation- [id number]
Original Note:
DC Summary - Studio Technician
-
Discharge Instructions:
Discharge Diagnosis/Procedures Small bowel obstruction
Leukocytosis
GERD
Anxiety/depression
Fatty liver
Migraine
Left ovarian cyst 2.4 cm
Diet Low Residue
Activity As tolerated
Driving Restrictions As prior to admission
Bathing Restrictions None
Blood Work cmp 2 months
Instructions:
Stand-Alone Forms:
Changes to Home Medications: Yes
Discharge Medications:
DC Medications w/original date entered in [facility]
cranberry 1,000 mg capsule 1,000 mg PO HS Supplement 12/07/20
fluvoxamine 150 mg capsule,extended release 24 hr 150 mg PO HS Mental health 12/07/20
multivit,eomtccq-dgcl-QU-lut-#179herbal 13.5 mg-200 mcg-250 mcg tablet (Womens Multivitamin High Potency) 1 tab PO HS Supplement 12/07/20
Botox 1 dose IM [id number] Neurological Condition 09/26/23
Lactobac no.2-Bifidobac no.1-S. thermo 112.5 billion cell capsule (Visbiome) 1 cap PO DAILY probiotic 09/26/23
Vegan Dha 1 cap PO HS Supplement 09/26/23
ascorbic acid (vitamin C) 1,000 mg tablet (Vitamin C) 1,000 mg PO HS Supplement 09/26/23
cetirizine 10 mg tablet (Zyrtec) 10 mg PO HS Allergies 09/26/23
cholecalciferol (vitamin D3) 250 mcg (10,000 unit) tablet 250 mcg PO ORTIZ@0800 Supplement 09/26/23
fluvoxamine 100 mg capsule,extended release 24 hr 100 mg PO HS mental health 09/26/23
gabapentin 600 mg tablet 600 mg PO HS Neurological Condition 09/26/23
meloxicam 15 mg tablet 15 mg PO DAILY PRN inflammation 09/26/23
mometasone 0.1 % topical cream 1 applic topical DAILY torso/extremeties 09/26/23
peg 400-propylene glycol (PF) 0.4 %-0.3 % eye drops in a dropperette (Systane (PF)) 2 drp BOTH EYES BID Eye Condition 09/26/23
vitamin B complex 1 tab PO HS Supplement 09/26/23
omeprazole 40 mg capsule,delayed release 40 mg PO DAILY Gastrointestinal issue #30 caps 09/30/23
Home Medication Changes
motrin stopped
PPI dose changed
Pending Results: No
--- NOTE | 2023-09-30 14:13 | CM ---
met with patient.she is stable for dc home with no needs.
[2023-09-30 14:26] VITALS: BP 148/86
== END 2023-09-30 14:29 | disposition home or self-care (01) | DRG 390 ==
LOC: 4 EAST ACU 16:44
PROVIDERS: Registered Nurse; ADMITTING PHYSICIAN Internal Medicine; ATTENDING PHYSICIAN Hospitalist; EMERGENCY PHYSICIAN Emergency Medicine; FAMILY PHYSICIAN Family Medicine; OTHER PHYSICIAN Surgery
DX: K56.609 Unspecified intestinal obstruction, unspecified as to partial versus complete obstruction (principal); G43.909 Migraine, unspecified, not intractable, without status migrainosus; J32.9 Chronic sinusitis, unspecified; J45.909 Unspecified asthma, uncomplicated; I10 Essential (primary) hypertension; F32.A Depression, unspecified; F41.9 Anxiety disorder, unspecified; K21.9 Gastro-esophageal reflux disease without esophagitis; D72.829 Elevated white blood cell count, unspecified; K76.0 Fatty (change of) liver, not elsewhere classified; N83.202 Unspecified ovarian cyst, left side; Z91.013 Allergy to seafood; Z90.49 Acquired absence of other specified parts of digestive tract; Z87.891 Personal history of nicotine dependence
CPT/HCPCS: 74177; 74250; 80048; 80053; 81003; 82248; 83690; 85025; 85027; 93005; 96361; 96374; 96375; 96376; 99285; Q9967

== ENCOUNTER → 2023-12-31 16:26 | Outpatient (REF) | payer OTHER, SELFPAY | LOC: RAD 16:26 | PROVIDERS: ATTENDING PHYSICIAN Internal Medicine Rheumatology; FAMILY PHYSICIAN Family Medicine | DX: M25.50 Pain in unspecified joint (principal) | CPT/HCPCS: 72110; 72202; 73030; 73100; 73120; 73523; 73564 ==

== ENCOUNTER → 2024-05-17 11:57 | Outpatient (REF) | payer OTHER, SELFPAY | LOC: WDC 11:57 | PROVIDERS: ATTENDING PHYSICIAN Obstetrics & Gynecology; FAMILY PHYSICIAN Family Medicine | DX: Z12.31 Encounter for screening mammogram for malignant neoplasm of breast (principal) | CPT/HCPCS: 77063; 77067 ==

== ENCOUNTER 2024-05-28 04:28 | Emergency (ER) | payer OTHER, SELFPAY ==
[2024-05-28 04:29] VITALS: BP 178/100
[2024-05-28 05:13] VITALS: BMI 32.8
--- NOTE | 2024-05-28 05:22 | ED.GENMED ---
History of Present Illness
General
Chief Complaint: Abdominal Pain
Source: patient
Exam Limitations: none
Time Seen by Provider: 05/28/24 05:16
History of Present Illness
History of Present Illness:
See MDM
Past History
Past History
ED Past Medical History: Asthma, Psychiatric (A/D) and Other (Migrainous headaches, recurrent sinusitis)
ED Past Surgical History: Cholecystectomy and Gynecological (D&E , Hysterectomy)
Social History
Tobacco: Former smoker
Alcohol: Occasional
Drug: None
Personal:
Living: with family
Employment: Employed
Family History
Family History: Hypertension; Negative Early CAD
Phy Exam
Physical Exam
Physical Exam:
See MDM
Course
Orders/Labs/Results
Orders:
Orders
05/28/24 05:11
Complete Blood Count/With Diff Urgent
Comprehensive Metabolic Panel Urgent
Lipase Urgent
05/28/24 05:21
CT Abd/pelvis W Iv Cont Urgent
Comment:
Reason For Exam: general abd pain, worse suprapubic
05/28/24 06:28
Urinalysis Reflex To Culture Urgent
Date Specimen was Collected: 05/28/24
Time Specimen was Collected: 05:04
Abnormal Lab Results
05/28/24
05:11
Abs Immat Gran (auto) 0.1 H 10^3/uL
(0-0.05)
Absolute Monos (auto) 0.9 H 10^3/uL
(0.1-0.6)
Immature Gran % 0.6 H %
(0-0.5)
Glucose 106 H mg/dl
(70-99)
05/28/24 05:11
05/28/24 05:11
Vital Signs
Initial and Last Documented VS:
Initial Vital Signs
Temp Pulse Resp BP
98.6 F 77 18 178/100
05/28/24 04:29 05/28/24 04:29 05/28/24 04:29 05/28/24 04:29
Last Documented Vital Signs
Temp Pulse Resp BP Pulse Ox
98.6 F 73 16 171/84 97
05/28/24 04:29 05/28/24 06:31 05/28/24 06:31 05/28/24 06:31 05/28/24 06:31
MDM/Problems Addressed
Differential Diagnosis Includes:
HPI and MDM Narrative:
48-year-old female presenting with general abdominal pain. She developed abdominal pain and had a sensation to defecate. She was able to pass her bowels. Since then, patient has been dealing with mid lower abdominal pain. Patient is worried this
could be related to another small bowel obstruction.
On exam, patient is diffusely tender in her suprapubic region and right lower quadrant. Given her history, will obtain CT to rule out small bowel infection versus acute cystitis
Physical exam
General: Well appearing and non-toxic
HEENT: protecting airway
Neck: appears supple
CV: No evidence of cyanosis
Resp: No accessory muscle use
Abd: Non-distended. Point tenderness to mid lower abdomen and right lower quadrant
Extremities: No deformities
Neuro: alert
Psych: Normal affect
Skin: Intact
Problems Addressed including Acute and Chronic Conditions affecting care:
1. Abdominal pain
Acuity: acute
Prognosis: stable
Details: Given history, will obtain CT to rule out small bowel obstruction. There is also concern for acute appendicitis as well
Updates
CT negative for acute pathology but there is concern for moderate constipation. Discussed stool softeners and laxative
Differential Diagnosis (but not limited to): Small bowel obstruction, colitis, acute appendicitis
Testing considered: Abdominal ultrasound
Drug therapy (if applicable): OTC meds, please see d/c instruction regarding Rx drugs
Amount and/or Complexity of Data Reviewed
Clinical info obtained from: Patient
External data reviewed: Prior history of small bowel obstruction which resolved with medical management
Labs I independently reviewed (but not limited to): White blood cell count normal
Radiology: The CT scan was personally and independently reviewed. In addition, official CT report reviewed.
Pulse Ox: not hypoxic
EKG independently reviewed: N/A
Production Leader: N/A
Critical Care: N/A
Risk of Complication:
Social Determinants of health: Good social support
Discussed with other providers: N/A
Escalation of Care includes Admit/Obs: After being observed in the Emergency Department, pt stable for discharge.
Occasional wrong word or 'sound a like' substitutions may have occurred due to the inherent limitations of voice recognition software. Read the chart carefully and recognize, using context, where substitutions have occurred.
*Critical Care Note
Total Time (30-74mins, 75-104mins- exclusive of procedures): Not Applicable
ED Attending Note
-
Portions of this chart may have been created with voice recognition software.� Occasional wrong word or��sound alike� substitutions may have occurred due to the inherent limitations of voice recognition software.
Discharge Plan
Departure
Patient Disposition: Home (Routine Discharge)
Date of Disposition: 05/28/24
Time of Disposition: 06:39
Patient with high blood pressure during this ER visit?: Yes
Discharge Problem:
Constipation
Instructions: Constipation, Adult (DC)
Prescriptions:
No Action
cranberry 1,000 MG capsule
1,000 mg PO HS
fluvoxamine 150 MG capsule,extended release 24hr
150 mg PO HS
Rx Instructions:
09/26/2023, take with 100 mg for a total of 250 mg.
Womens Multivitamin Hi Potency 1 EACH tablet
1 tab PO HS
ascorbic acid (vitamin C) [Vitamin C] 1,000 mg Tablet
1,000 mg PO HS
gabapentin 600 mg Tablet
600 mg PO HS
cetirizine [Zyrtec] 10 mg Tablet
10 mg PO HS
meloxicam 15 mg Tablet
15 mg PO DAILY PRN (Reason: inflammation)
vitamin B complex Tablet
1 tab PO HS
mometasone 0.1 % Cream
1 applic TOPICAL DAILY
Visbiome 112.5 billion cell Capsule
1 cap PO DAILY
fluvoxamine 100 mg Capsule,Extended Release 24hr
100 mg PO HS
Rx Instructions:
09/26/2023, take with 150 mg for a total of 250 mg.
cholecalciferol (vitamin D3) 250 mcg (10,000 unit) Tablet
250 mcg PO ORTIZ@0800
Botox
1 dose IM [id number]
Vegan Dha
1 cap PO HS
Patient Comments:
09/26/2023, per pt., has to be vegan because she is allergic to shellfish.
Systane (PF) 0.4-0.3 % Dropperette
2 drp BOTH EYES BID
omeprazole 40 mg capsule,delayed release(DR/EC)
40 mg PO DAILY Qty: 30 0RF
Activity Restrictions/Additional Instructions:
Please return for any worsening symptoms.
You may return at any time if you have further concerns.
Please follow up with your doctor at the first available appointment, preferably this week.
The CT scan was concerning for constipation. Please take MiraLAX until symptoms resolved. You may benefit from daily stool softener.
Thank you for choosing [facility].
Interventions
Interventions:
*Risk Screen - Suicide Last Done: 05/28/24 04:33
*General Assessment Last Done: 05/28/24 05:13
*Neglect/Abuse Screening Last Done: 05/28/24 05:13
*ED COVID-19 Vaccine History Last Done: 05/28/24 05:13
UJ-Hstqbz-Zbvbayzaeb Assessment Last Done: 05/28/24 05:13
Discharge Date and Time
Print Language: UGANDAN
[2024-05-28 05:23] LABS: % Basophils 0.8 % (0-2); % Eosinophils 2.9 % (0-6); % Immature Granulocytes 0.6 % (0-0.5); % Lymphocytes 33.2 % (20.5-51.1); % Monocytes 8.5 % (1.7-9.3); Absolute Basophils 0.1 10^3/uL (0-0.2); Absolute Eosinophils 0.3 10^3/uL (0-0.7); Absolute Immature Granulocytes 0.1 10^3/uL (0-0.05); Absolute Lymphocytes 3.3 10^3/uL (1.2-3.4); Absolute Monocytes 0.9 10^3/uL (0.1-0.6); Absolute Neutrophils 5.4 10^3/uL (1.4-6.5); Hematocrit 39.2 % (37.0-47.0); Hemoglobin 13.4 g/dL (12.0-16.0); Mean Corp Hgb Conc. 34.2 g/dL (33.0-37.0); Mean Corpuscular Hgb 29.4 pg (27.0-31.0); Mean Platelet Volume 9.7 fL (7.4-10.4); Nucleated Red Blood Cells % 0 %; Platelet Count 222 10^3/uL (130-400); Red Blood Cell Count 4.56 10^6/uL (4.20-5.40); Red Cell Dist. Width 12.7 % (11.5-14.5)
[2024-05-28 05:49] LABS: ALT (SGPT) 33 U/L (0-35); AST (SGOT) 23 U/L (14-36); Albumin 4.1 g/dl (3.5-5.0); Alkaline Phosphatase 58 U/L (38-126); Blood Urea Nitrogen 17 mg/dl (7-17); Calcium 10.2 mg/dl (8.4-10.2); Carbon Dioxide 26 mmol/L (22-30); Chloride 106 mmol/L (98-107); Estimated Creatinine Clearance 110 ml/min; Glucose 106 mg/dl (70-99); Lipase 157 U/L (23-300); Potassium 4.5 mmol/L (3.5-5.1); Sodium 140 mmol/L (135-145); Total Bilirubin 0.3 mg/dl (0.2-1.3); Total Protein 6.8 g/dl (6.3-8.2); eGFR > 60.00
[2024-05-28 06:31] VITALS: BP 171/84
[2024-05-28 06:49] LABS: Urine Albumin Negative (Neg - Trace); Urine Bilirubin Negative (Negative); Urine Character Clear (Clear); Urine Color Yellow; Urine Glucose Negative (Negative); Urine Ketone Negative (Negative); Urine Leukocyte Negative (Negative); Urine Nitrite Negative (Negative); Urine Occult Blood Negative (Negative); Urine Urobilinogen Negative (Neg - 1+); Urine pH 6.5 (5.0-9.0)
== END 2024-05-28 07:02 | disposition home or self-care (01) ==
LOC: EMR 04:28
PROVIDERS: EMERGENCY PHYSICIAN Student in an Organized Health Care Education/Training Program; FAMILY PHYSICIAN Family Medicine
DX: K59.00 Constipation, unspecified (principal); R10.30 Lower abdominal pain, unspecified; R03.0 Elevated blood-pressure reading, without diagnosis of hypertension; J45.909 Unspecified asthma, uncomplicated; G43.909 Migraine, unspecified, not intractable, without status migrainosus; F41.9 Anxiety disorder, unspecified; F32.A Depression, unspecified; Z87.891 Personal history of nicotine dependence; Z90.49 Acquired absence of other specified parts of digestive tract; Z91.013 Allergy to seafood; Z91.018 Allergy to other foods
CPT/HCPCS: 99284; 74177; 80053; 81003; 83690; 85025; Q9967

== ENCOUNTER 2024-11-01 18:20 | Emergency (ER) | payer OTHER, SELFPAY ==
[2024-11-01 18:29] VITALS: BP 185/110
--- NOTE | 2024-11-01 20:36 | ED.GENMED ---
History of Present Illness
General
Chief Complaint: Musculo-Skeletal Complaint
Source: patient
Exam Limitations: none
Time Seen by Provider: 11/01/24 19:51
Nursing documentation reviewed up to this point in time: agreed with
History of Present Illness
History of Present Illness:
49-year-old female with history as noted presents for evaluation of right elbow pain. Patient reports that she recently returned to the gym, 2 days ago did a tricep workout. She says she was mildly sore yesterday but today was having significant
right elbow pain to the point that she could not move it without severe pain. Pain is mainly in the medial elbow radiates towards the forearm. Worse with any movement. She did take meloxicam yesterday and today without any improvement. She has
also been using ice and heat, gentle range of motion again without adequate symptom control. Came to the ER for assessment. She denies any fever or any other joint pains.
Past History
Past History
ED Past Medical History: Asthma, Psychiatric (A/D) and Other (Migrainous headaches, recurrent sinusitis)
ED Past Surgical History: Cholecystectomy and Gynecological (D&E , Hysterectomy)
Social History
Tobacco: Former smoker
Alcohol: Occasional
Drug: None
Personal:
Living: with family
Employment: Employed
Family History
Family History: Hypertension; Negative Early CAD
Review of Systems
Review of Systems
All Other Systems: ROS reviewed and negative except as documented in HPI and ROS
Musculoskeletal: Reports joint pain
Phy Exam
Physical Exam
Physical Exam:
General: Awake, alert, oriented x3; holding her right elbow but nontoxic overall
Head: Normocephalic, atraumatic
Eyes: Conjunctiva normal
Throat: Airway intact, handling secretions
Neck: Trachea midline
Lungs: Breathing comfortably no distress
Heart: Regular rate
Skin: no rash
Extremities: Patient has severe tenderness over the medial epicondyle of the left elbow and pain with any attempt at flexion or extension of the elbow; no reproducible tenderness in the forearm or upper arm, no tenderness of the shoulder or wrist,
strong right radial pulse, no edema in the right upper extremity, motor and sensory intact in the distal right upper extremity, no skin changes, warmth or erythema over the joint and no palpable joint effusion in the elbow; rest of extremities are
unremarkable
Scores
Heart Failure Risk
Heart Failure Risk Score: Not Applicable
Heart Score for Chest Pain Patients
STEMI patient?: Not applicable
Withdrawal Assessment of Alcohol
Withdrawal Assessment Completed?: Not applicable
Course
Orders/Labs/Results
Orders:
Orders
11/01/24 19:52
CR Elbow - Right Min 3 Views Urgent
Comment:
Reason For Exam: right elbow pain
Vital Signs
Initial and Last Documented VS:
Initial Vital Signs
Temp Pulse Resp BP Pulse Ox
37.1 C 80 17 185/110 99
11/01/24 18:29 11/01/24 18:29 11/01/24 18:29 11/01/24 18:29 11/01/24 18:29
Last Documented Vital Signs
Temp Pulse Resp BP Pulse Ox
37.1 C 80 17 185/110 99
11/01/24 18:29 11/01/24 18:29 11/01/24 18:29 11/01/24 18:29 11/01/24 18:29
MDM/Problems Addressed
Differential Diagnosis Includes:
Fracture, sprain, tendinitis, bursitis
MDM/Problems Addressed:
49-year-old female presents for evaluation of elbow pain as described above. Vitals and exam as above�neurovascular exam is intact. She has no joint effusion or swelling of the joint itself, exquisite tenderness over the medial aspect of the
elbow. X-ray reviewed by me appears to show calcified tendinitis in the medial aspect which is area of her pain. Inadequate control of pain with NSAIDs and other conservative measures�will prescribe short course of opiates, refer to orthopedist,
advised to continue with supportive measures (heat/ice, gentle range of motion, NSAIDs). Patient comfortable with this plan. All questions answered.
Acute Exacerbation and/or Progression of Chronic Illness: HTN
*Pulse Oximetry
Patient hypoxic: no (99%)
*Critical Care Note
Total Time (30-74mins, 75-104mins- exclusive of procedures): Not Applicable
Data Reviewed
Source: patient
ED Attending Note
-
Portions of this chart may have been created with voice recognition software.� Occasional wrong word or��sound alike� substitutions may have occurred due to the inherent limitations of voice recognition software.
Discharge Plan
Departure
Patient Disposition: Home (Routine Discharge)
Date of Disposition: 11/01/24
Time of Disposition: 20:33
Patient with high blood pressure during this ER visit?: Yes
Discharge Problem:
Tendonitis
Instructions: Tendinopathy (DC)
Prescriptions:
New
oxycodone 5 mg tablet
5 mg PO Q6H PRN (Reason: Pain) Qty: 14 0RF
No Action
cranberry fruit 1,000 MG capsule
1,000 mg PO HS
fluvoxamine 150 MG capsule,extended release 24hr
150 mg PO HS
Rx Instructions:
09/26/2023, take with 100 mg for a total of 250 mg.
Womens Multivitamin Hi Potency 1 EACH tablet
1 tab PO HS
ascorbic acid (vitamin C) [Vitamin C] 1,000 mg Tablet
1,000 mg PO HS
gabapentin 600 mg Tablet
600 mg PO HS
cetirizine [Zyrtec] 10 mg Tablet
10 mg PO HS
meloxicam 15 mg Tablet
15 mg PO DAILY PRN (Reason: inflammation)
vitamin B complex Tablet
1 tab PO HS
mometasone 0.1 % Cream
1 applic TOPICAL DAILY
Visbiome 112.5 billion cell Capsule
1 cap PO DAILY
fluvoxamine 100 mg Capsule,Extended Release 24hr
100 mg PO HS
Rx Instructions:
09/26/2023, take with 150 mg for a total of 250 mg.
cholecalciferol (vitamin D3) 250 mcg (10,000 unit) Tablet
250 mcg PO ORTIZ@0800
Botox
1 dose IM [id number]
Vegan Dha
1 cap PO HS
Patient Comments:
09/26/2023, per pt., has to be vegan because she is allergic to shellfish.
Systane (PF) 0.4-0.3 % Dropperette
2 drp BOTH EYES BID
omeprazole 40 mg capsule,delayed release(DR/EC)
40 mg PO DAILY Qty: 30 0RF
Referrals:
Warren Phillips Jr., DO [Family Provider, Internal Medicine] - Follow up in 1 week
Familia Jenkins MD [Active, Orthopedics] - Call in 1-3 days for appt
Referral Note: Orthopedist
Activity Restrictions/Additional Instructions:
Thank you for visiting the Emergency Department at [facility].
1. Please schedule a follow up appointment as directed. Call first thing tomorrow morning to make an appointment.
2. If indicated, please take your medications as instructed and indicated on discharge paperwork.
3. If any of your symptoms do not improve, or persist, or become more severe within 6-12 hours, please return to the emergency department for further care.
4. Please return to the emergency department if you develop a headache, neck pain/stiffness, fever greater than 100.4F, chest pain, shortness of breath, persistent nausea, vomiting, slurred speech, difficulty walking, numbness/tingling, weakness,
signs of infection or any other symptoms that are worrisome to you.
Please call [phone] if you have any questions.
Interventions
Interventions:
*Risk Screen - Suicide Last Done: 11/01/24 18:31
*General Assessment Last Done: 11/01/24 18:31
*Neglect/Abuse Screening Last Done: 11/01/24 18:31
*ED- Fall Risk Assessment Last Done: 11/01/24 19:55
*ED COVID-19 Vaccine History Last Done: 11/01/24 18:31
ED-Musculoskeletal Assessment Last Done: 11/01/24 19:55
Discharge Date and Time
Print Language: [place]
[2024-11-01 20:43] VITALS: BP 166/83
== END 2024-11-01 20:44 | disposition home or self-care (01) ==
LOC: EMR 18:20
PROVIDERS: EMERGENCY PHYSICIAN Emergency Medicine; FAMILY PHYSICIAN Family Medicine
DX: M77.8 Other enthesopathies, not elsewhere classified (principal); J45.909 Unspecified asthma, uncomplicated; Z90.49 Acquired absence of other specified parts of digestive tract; Z87.891 Personal history of nicotine dependence
CPT/HCPCS: 99283; 73080

== ENCOUNTER 2025-04-02 10:12 | Emergency (ER) | payer OTHER, SELFPAY ==
[2025-04-02 10:16] VITALS: BP 176/121
--- NOTE | 2025-04-02 11:10 | ED.GENMED ---
History of Present Illness
General
Chief Complaint: Headache
Source: patient
Exam Limitations: none
Time Seen by Provider: 04/02/25 10:47
History of Present Illness
History of Present Illness:
49-year-old female with history of migraines presents with a headache consistent with prior migraines she has had over the past 2 to 3 days. She is nauseous with vomiting. No fever. She notes is light sensitive. The pain is a bandlike fashion
around her head. She denies any neck pain or numbness or tingling to the arms or legs. She tried Nurtec at home without relief.
Past History
Past History
ED Past Medical History: Asthma, Psychiatric (A/D) and Other (Migrainous headaches, recurrent sinusitis)
ED Past Surgical History: Cholecystectomy and Gynecological (D&E , Hysterectomy)
Social History
Tobacco: Former smoker
Alcohol: Occasional
Drug: None
Personal:
Living: with family
Employment: Employed
Family History
Family History: Hypertension; Negative Early CAD
Phy Exam
Physical Exam
Physical Exam:
General: Well-appearing female sunglasses on the dark room
HEENT: Normal cephalic atraumatic pupils equal round reactive to light
Heart: Regular rate and rhythm
Lungs: Clear no wheeze
Neurologic exam: Alert and oriented no facial asymmetry conversing appropriately normal gait no meningeal signs
Ext: No cyanosis
Course
Orders/Labs/Results
Orders:
Orders
04/02/25 11:09
0.9% Sodium Chloride 1000 ml [Nss] 1,000 ml IV BOLUS
Diphenhydramine [Benadryl] 25 mg IV NOW STA
Ketorolac [Toradol] 15 mg IV NOW STA
Prochlorperazine [Compazine] 10 mg IV NOW STA
Vital Signs
Initial and Last Documented VS:
Initial Vital Signs
Temp Pulse Resp BP Pulse Ox
98.4 F 93 20 176/121 98
04/02/25 10:16 04/02/25 10:16 04/02/25 10:16 04/02/25 10:16 04/02/25 10:16
Last Documented Vital Signs
Temp Pulse Resp BP Pulse Ox
98.4 F 77 16 163/112 98
04/02/25 10:16 04/02/25 11:56 04/02/25 11:56 04/02/25 11:56 04/02/25 11:56
MDM/Problems Addressed
Differential Diagnosis Includes:
Patient here with headache. She describes it as gradual in onset consistent with prior migraines. She does not describe sudden onset thunderclap type headache. There is no fever to suggest infectious source. Will treat as migraine with Toradol
fluids Compazine Benadryl
*Pulse Oximetry
SaO2: 98
Oxygen Mode of Delivery: Room air
Patient hypoxic: no
*Critical Care Note
Total Time (30-74mins, 75-104mins- exclusive of procedures): Not Applicable
Update Note
Update Note:
Patient reevaluated feeling much better headache is improved. She feels comfortable with discharge. Return precautions were given
ED Attending Note
-
Portions of this chart may have been created with voice recognition software.� Occasional wrong word or��sound alike� substitutions may have occurred due to the inherent limitations of voice recognition software.
Discharge Plan
Departure
Patient Disposition: Home (Routine Discharge)
Date of Disposition: 04/02/25
Time of Disposition: 12:45
Patient with high blood pressure during this ER visit?: No
Discharge Problem:
Migraine
Instructions: Migraines (DC)
Prescriptions:
No Action
cranberry fruit 1,000 MG capsule
1,000 mg PO HS
fluvoxamine 150 MG capsule,extended release 24hr
150 mg PO HS
Rx Instructions:
09/26/2023, take with 100 mg for a total of 250 mg.
Womens Multivitamin Hi Potency 1 EACH tablet
1 tab PO HS
ascorbic acid (vitamin C) [Vitamin C] 1,000 mg Tablet
1,000 mg PO HS
gabapentin 600 mg Tablet
600 mg PO HS
cetirizine [Zyrtec] 10 mg Tablet
10 mg PO HS
meloxicam 15 mg Tablet
15 mg PO DAILY PRN (Reason: inflammation)
vitamin B complex Tablet
1 tab PO HS
mometasone 0.1 % Cream
1 applic TOPICAL DAILY
Visbiome 112.5 billion cell Capsule
1 cap PO DAILY
fluvoxamine 100 mg Capsule,Extended Release 24hr
100 mg PO HS
Rx Instructions:
09/26/2023, take with 150 mg for a total of 250 mg.
cholecalciferol (vitamin D3) 250 mcg (10,000 unit) Tablet
250 mcg PO ORTIZ@0800
Botox
1 dose IM [id number]
Vegan Dha
1 cap PO HS
Patient Comments:
09/26/2023, per pt., has to be vegan because she is allergic to shellfish.
Systane (PF) 0.4-0.3 % Dropperette
2 drp BOTH EYES BID
omeprazole 40 mg capsule,delayed release(DR/EC)
40 mg PO DAILY Qty: 30 0RF
oxycodone 5 mg tablet
5 mg PO Q6H PRN (Reason: Pain) Qty: 14 0RF
Referrals:
Warren Phillips Jr., DO [Family Provider, Internal Medicine]
Activity Restrictions/Additional Instructions:
Continue current medication regimen. Return here if needed
Interventions
Interventions:
*Risk Screen - Suicide Last Done: 04/02/25 10:16
*General Assessment Last Done: 04/02/25 10:16
*Neglect/Abuse Screening Last Done: 04/02/25 10:16
*ED- Fall Risk Assessment Last Done: 04/02/25 10:16
*ED COVID-19 Vaccine History Last Done: 04/02/25 10:16
*ED Influenza Vaccine History Last Done: 04/02/25 10:16
ED- Neurological Assessment Last Done: 04/02/25 11:36
Discharge Date and Time
Print Language: ANGOLAN
[2025-04-02 11:25] VITALS: BMI 33.1
[2025-04-02] MEDS: NSS 1000 IV (11:25)
[2025-04-02] MEDS: TORADOL 15 MG IV (11:26)
[2025-04-02] MEDS: BENADRYL 25 MG IV (11:28)
[2025-04-02] MEDS: COMPAZINE 10 MG IV (11:30)
[2025-04-02 11:56] VITALS: BP 163/112
== END 2025-04-02 12:56 | disposition home or self-care (01) ==
LOC: EMR 10:12
PROVIDERS: EMERGENCY PHYSICIAN Emergency Medicine; FAMILY PHYSICIAN Family Medicine
DX: G43.909 Migraine, unspecified, not intractable, without status migrainosus (principal); J45.909 Unspecified asthma, uncomplicated; Z90.49 Acquired absence of other specified parts of digestive tract; Z87.891 Personal history of nicotine dependence; Z90.710 Acquired absence of both cervix and uterus
CPT/HCPCS: 96374; 96375; 96361; 99284